=== PATIENT | female | born 1955 | race Caucasian/White ===

== ENCOUNTER → 2017-12-13 | Outpatient (CLI) | payer MEDICARE, OTHER ==
[2017-12-13 16:40] LABS: APPEARANCE,URINE CLEAR; BILIRUBIN,URINE NEGATIVE (NEGATIVE); COLOR,URINE STRAW; GLUCOSE, URINE NEGATIVE (NEGATIVE); KETONES,URINE NEGATIVE (NEGATIVE); LEUKOCYTE ESTERASE,URINE NEGATIVE (NEGATIVE); NITRITE,URINE NEGATIVE (NEGATIVE); PROTEIN,URINE NEGATIVE (NEGATIVE); URINE SPECIFIC GRAVITY 1.008; UROBILINOGEN,URINE NEGATIVE mg/dL (<2.0)
[2017-12-13 16:42] LABS: ABSOLUTE BASOPHILS # (AUTO) 0.1 10^3/uL (0.0-0.2); ABSOLUTE LYMPHOCYTES (AUTO) 1.4 10^3/uL (0.5-4.7); ABSOLUTE MONOCYTES (AUTO) 0.4 10^3/uL (0.1-1.4); ABSOLUTE NEUT (AUTO) 8.7 10^3/uL (1.7-8.2); BASOPHILS % (AUTO) 0.5 % (0-2); EOSINOPHILS % (AUTO) 0.3 % (0-6); HEMATOCRIT 39.4 % (36.0-47.0); HEMOGLOBIN 13.3 g/dL (12.0-15.5); INTERNATIONAL RATION (INR) 0.93; LYMPHOCYTES % (AUTO) 13.5 % (13-45); MEAN CORPUSCULAR HEMOGLOBIN 31.9 pg (27.0-33.4); MEAN CORPUSCULAR HGB CONC 33.7 g/dL (32.0-36.0); MEAN CORPUSCULAR VOLUME 95 fl (80-97); PARTIAL THROMBOPLASTIN TIME 26.8 SEC (23.5-35.8); PLATELET COUNT 257 10^3/uL (150-450); RED BLOOD COUNT 4.16 10^6/uL (3.72-5.28); RED CELL DISTRIBUTION WIDTH 13.6 % (11.5-14.0); SEGMENTED NEUTROPHILS % (AUTO) 81.7 % (42-78); TOTAL CELLS COUNTED % (AUTO) 100 %; WHITE BLOOD COUNT 10.7 10^3/uL (4.0-10.5)
== END ==
LOC: OD 15:18
PROVIDERS: ATTEND Pain Medicine Interventional Pain Medicine
DX: S22.060A Wedge compression fracture of T7-T8 vertebra, initial encounter for closed fracture (principal); X58.XXXA Exposure to other specified factors, initial encounter
CPT/HCPCS: 36415; 81001; 85025; 85610; 85730

== ENCOUNTER 2017-12-16 10:03 | Day surgery (SDC) | payer MEDICARE, OTHER ==
[~2017-12-16 10:03] MED LIST: CEFAZOLIN 1 GM/D5W RTU 1 GM/50 ML RTUPB IV PRN; RINGERS SOLUTION,LACTATED 1,000 ML IV PRN
[2017-12-16] MEDS ORDERED: KETAMINE HCL INJ 500 MG/10 ML VIAL ONE (11:31)
[2017-12-16] MEDS ORDERED: MIDAZOLAM 2 MG/2 ML INJ ONE (11:31)
[2017-12-16] MEDS ORDERED: FENTANYL CITRATE INJ/PF 100 MCG/2 ML AMPUL ONE ×2 (11:31)
[2017-12-16] MEDS ORDERED: LIDOCAINE 2% INJ-PF (20 MG/ML) 10 ML AMPUL ONE (11:31)
[2017-12-16] MEDS ORDERED: PROPOFOL INJ 200 MG/20 ML VIAL IV ONE (11:32)
[2017-12-16] MEDS ORDERED: ACETAMINOPHEN 100 ML IV ONE (11:32)
[2017-12-16] MEDS ORDERED: SODIUM BICARBONATE 8.4% INJ 50 MEQ/50 ML DISP.SYRIN ONE (12:09)
[2017-12-16] MEDS ORDERED: LIDOCAINE 1% INJ-PF (10 MG/ML) 30 ML SDV ONE (12:09)
[2017-12-16] MEDS ORDERED: FENTANYL CITRATE INJ/PF 100 MCG/2 ML AMPUL IV PRN ×3 (12:44)
[2017-12-16] MEDS ORDERED: OXYCODONE-ACETAMINOPHEN 5-325 MG TABLET PO PRN (12:44)
[2017-12-16] MEDS ORDERED: MEPERIDINE HCL/PF INJ 25 MG/1 ML DISP.SYRIN IV PRN (12:44)
[2017-12-16] MEDS ORDERED: PROMETHAZINE HCL INJ 25 MG/1 ML VIAL IV PRN ×2 (12:44)
[2017-12-16] MEDS ORDERED: MORPHINE SULFATE 10 MG/ML INJ IV PRN (12:44)
[2017-12-16] MEDS ORDERED: DIPHENHYDRAMINE HCL 50 MG/ML VIAL IV PRN (12:44)
[2017-12-16] MEDS ORDERED: ONDANSETRON HCL INJ/PF 4 MG/2 ML SDV IV PRN (12:44)
[2017-12-16] MEDS ORDERED: CEFAZOLIN INJ 1 GM VIAL ONE (13:13)
[2017-12-16] MEDS ORDERED: OXYCODONE-ACETAMINOPHEN 5-325 MG TABLET PO SCH (13:30)
--- NOTE | 2017-12-16 13:44 | OPERATIVE REPORT E ---
Operative Report NAME: THI CORDERO : 1955 AGE: 62Y DATE OF SURGERY: 12/16/2017 ROOM: PREOPERATIVE DIAGNOSIS: T8 compression fracture 25% with intractable pain. POSTOPERATIVE DIAGNOSIS: T8 compression fracture 25% with intractable pain. OPERATIVE PROCEDURE: T8 balloon kyphoplasty using fluoroscopy. SURGEON: KHOI ARRIAZA M.D. INDICATIONS: Intractable pain. COMPLICATIONS: None. SPECIMENS REMOVED: None. ASSISTANTS: None. ANESTHESIA: MAC. BLOOD LOSS: Minimal. PROCEDURE NOTE: After obtaining informed consent and advising the patient of the risks and benefits, including serious neurological injury, bleeding, infection, pneumothorax, aggravation of pain, paralysis, allergic reaction, and , she was taken to the operating room and placed comfortably in the prone position. Fluoroscopy was used to evaluate the spine. The T8 fracture was identified and compared to MRI imaging. The patient was then prepped with chlorhexidine with appropriate drying time and then draped. Again, with fluoroscopy, the vertebral body T8 was identified. A recount was performed to ensure proper location and identifying the nature of the appearance of the fracture. Beginning on the right side with a right perpendicular intended approach, the skin was anesthetized with 1% lidocaine with bicarb. The *------* tissue and subcutaneous tissue were anesthetized as well. Approximate total volume of 6 mL with local anesthetic was utilized. A small incision was then made in the skin. The Express trocar was then advanced under fluoroscopic guidance entering into the perpendicular location. Repeated views were taken in AP and lateral views to ensure safe location. The pedicle was entered followed by the vertebral body with assurance that it had not penetrated into the spinal canal medially prior to entering into the vertebral body. The Express trocar was advanced followed by placement of the drill to the anterior portion of the vertebral body. In the AP view, it appeared that there was near excellent location in the midline area. The drill was removed followed by placement of the balloon and the balloon was expanded. The balloon filled in the central location anteriorly, medially, and laterally. The decision was made at this point to proceed with a single balloon due to the satisfactory location of the filling. It also should be noted that the upper endplate of the fracture mobilized approximately 2 mm to give satisfactory mormonism of the vertebral body height. Cement was then mixed and then instilled for a total of 2.4 mL. The filler tube was then removed followed by placement of the Stylette into the trocar. The cement was allowed to harden additionally. The trocar was then removed. The region was then cleansed, sterile dressings were placed, and the patient was taken to the PACU. DICTATING PHYSICIAN: KHOI ARRIAZA M.D. [id number] PHY#: [id number] ID: [id number] JOB#: [id number] ACCT: [id number] cc:KHOI ARRIAZA M.D. >
[2017-12-16 15:06] VITALS: BP 126/77
--- NOTE | 2017-12-16 16:13 | RADIOLOGY REPORT (SQ) ---
EXAM DESCRIPTION: NO CHG FLUORO; T SPINE AP/LAT COMPLETED DATE/TIME: 12/16/2017 4:01 pm REASON FOR STUDY: KYPHOPLASTY ASST W/ FLUORO IN OR S22.060A WEDGE COMPRESSION FRACTURE OF T7-T8 IVAN TEBRA, INIT COMPARISON: None. FLUOROSCOPY TIME: 2.7 minutes Multiple fluoroscopic images saved to PACS. TECHNIQUE: Intra-operative images acquired during surgical procedure to evaluate progress. NUMBER OF IMAGES: Multiple fluoroscopic LIMITATIONS: None. FINDINGS: Selected images from kyphoplasty in the thoracic spine. Opaque cement in expected locatio n. IMPRESSION: IMAGE(S) OBTAINED DURING PROCEDURE. COMMENT: Quality ID 145: Final reports for procedures using fluoroscopy that document radiation exp osure indices, or exposure time and number of fluorographic images (if radiation exposure indices are not available) Please consult full operative report of the attending physician for description of the procedure. TECHNICAL DOCUMENTATION: JOB ID: [id number] [employer]- All Rights Reserved Reading location - IP/workstation name: [email or web address]
--- NOTE | 2017-12-16 16:13 | RADIOLOGY REPORT (SQ) ---
EXAM DESCRIPTION: NO CHG FLUORO; T SPINE AP/LAT COMPLETED DATE/TIME: 12/16/2017 4:01 pm REASON FOR STUDY: KYPHOPLASTY ASST W/ FLUORO IN OR S22.060A WEDGE COMPRESSION FRACTURE OF T7-T8 IVAN TEBRA, INIT COMPARISON: None. FLUOROSCOPY TIME: 2.7 minutes Multiple fluoroscopic images saved to PACS. TECHNIQUE: Intra-operative images acquired during surgical procedure to evaluate progress. NUMBER OF IMAGES: Multiple fluoroscopic LIMITATIONS: None. FINDINGS: Selected images from kyphoplasty in the thoracic spine. Opaque cement in expected locatio n. IMPRESSION: IMAGE(S) OBTAINED DURING PROCEDURE. COMMENT: Quality ID 145: Final reports for procedures using fluoroscopy that document radiation exp osure indices, or exposure time and number of fluorographic images (if radiation exposure indices are not available) Please consult full operative report of the attending physician for description of the procedure. TECHNICAL DOCUMENTATION: JOB ID: [id number] [employer]- All Rights Reserved Reading location - IP/workstation name: [email or web address]
== END 2017-12-16 15:10 | disposition home or self-care (01) ==
LOC: OROUT 10:03
PROVIDERS: ATTEND Pain Medicine Interventional Pain Medicine
DX: S22.060A Wedge compression fracture of T7-T8 vertebra, initial encounter for closed fracture (principal); X58.XXXA Exposure to other specified factors, initial encounter; I10 Essential (primary) hypertension; J45.909 Unspecified asthma, uncomplicated; M19.90 Unspecified osteoarthritis, unspecified site; Z88.8 Allergy status to other drugs, medicaments and biological substances; Z88.5 Allergy status to narcotic agent; Z87.891 Personal history of nicotine dependence
CPT/HCPCS: 72070; 22513; Q9966; J2250; J0690 ×2; J3010; J3490 ×4; J2704; J0131; 1936

== ENCOUNTER 2018-10-08 15:27 | Emergency (ER) | payer MEDICARE, OTHER ==
[2018-10-08] MEDS ORDERED: ASPIRIN 81 MG TABLET, CHEWABLE PO ONE (16:15)
[2018-10-08] MEDS ORDERED: NITROGLYCERIN 2% OINTMENT 1 GM PACKET TP ONE (16:16)
--- NOTE | 2018-10-08 16:17 | ER Document Report ---
ED Medical Screen (RME) - General Chief Complaint: Chest Pain Stated Complaint: CHEST PAIN, HEARTRATE ISSUE Time Seen by Provider: 10/08/18 16:09 Primary Care Provider: ANNIKA FINCH MD [Primary Care Provider] - Follow up as needed Notes: Chief complaint: Chest pain History of complain:( obtained from----patient) 53 years old female presents today with left-sided chest pain over the precordial region radiating to the back associated with the left arm numbness and tingling sensation since this morning. Nauseous but did not vomit today but vomited once yesterday. Denies any palpitation or diaphoresis. Denies any previous history of coronary artery disease. History of COPD, former smoker PHYSICAL EXAMINATION: GENERAL: Well-appearing, well-nourished and in no acute distress. HEAD: Atraumatic, normocephalic. EYES: Pupils equal round and reactive to light, extraocular movements intact, conjunctiva are normal. ENT: Nares patent, oropharynx clear without exudates. Moist mucous membranes. NECK: Normal range of motion, supple without lymphadenopathy LUNGS: Breath sounds clear to auscultation bilaterally and equal. No wheezes rales or rhonchi. HEART: Regular rate and rhythm without murmurs ABDOMEN: Soft, nontender, nondistended abdomen. No guarding, no rebound. No masses appreciated. Examination of genitals-deferred Dictation was performed using [employer] voice recognition software TRAVEL OUTSIDE OF THE [place] IN LAST 30 DAYS: No - Related Data Allergies/Adverse Reactions: Riiniwx-Swp-Xdd Reductase Inhibitor Allergy (Verified 10/08/18 15:28) rash oxycodone HCl [From Percocet] Adverse Reaction (Verified 10/08/18 15:28) see comments Past Medical History - Social History Chew tobacco use (# tins/day): No Frequency of alcohol use: None Drug Abuse: None - Past Medical History Cardiac Medical History: Reports: Hx Hypertension Denies: Hx Coronary Artery Disease, Hx Heart Attack Pulmonary Medical History: Reports: Hx Asthma, Hx COPD, Hx Pneumonia - about 4 years ago Denies: Hx Bronchitis Neurological Medical History: Denies: Hx Cerebrovascular Accident, Hx Seizures Renal/ Medical History: Denies: Hx Peritoneal Dialysis Musculoskeltal Medical History: Reports Hx Arthritis - RA Past Surgical History: Reports: Hx Abdominal Surgery - neissen fundoplasty, Hx Cholecystectomy, Hx Hysterectomy, Hx Orthopedic Surgery - back/left wrist - Immunizations Hx Diphtheria, Pertussis, Tetanus Vaccination: No History of Influenza Vaccine for 05/2017 - 10/2017 Season: Yes Influenza Administration Date for 05/2017 - 10/2017 Season: 03/12/18 Physical Exam - Vital signs Vitals: Temp Pulse BP Pulse Ox 98.6 F 101 H 132/85 H 97 10/08/18 15:40 10/08/18 15:40 10/08/18 15:40 10/08/18 15:40 Course - Vital Signs Vital signs: Temp Pulse Resp BP Pulse Ox 98.6 F 101 H 132/85 H 97 10/08/18 15:40 10/08/18 15:40 10/08/18 15:40 10/08/18 15:40 Doctor's Discharge - Discharge Referrals: ANNIKA FINCH MD [Primary Care Provider] - Follow up as needed
--- NOTE | 2018-10-08 16:46 | RADIOLOGY REPORT (SQ) ---
EXAM DESCRIPTION: CHEST SINGLE VIEW COMPLETED DATE/TIME: 10/08/2018 4:35 pm REASON FOR STUDY: Chest pain COMPARISON: None. EXAM PARAMETERS: NUMBER OF VIEWS: One view. TECHNIQUE: Single frontal radiographic view of the chest acquired. RADIATION DOSE: NA LIMITATIONS: None. FINDINGS: LUNGS AND PLEURA: No opacities, masses or pneumothorax. No pleural effusion. MEDIASTINUM AND HILAR STRUCTURES: No masses. Contour normal. HEART AND VASCULAR STRUCTURES: Heart normal in size. Normal vasculature. BONES: No acute findings. HARDWARE: None in the chest. OTHER: No other significant finding. IMPRESSION: NO ACUTE RADIOGRAPHIC FINDING IN THE CHEST. TECHNICAL DOCUMENTATION: JOB ID: [id number] [employer]- All Rights Reserved Reading location - IP/workstation name: [email or web address]
[2018-10-08 18:02] LABS: ABSOLUTE BASOPHILS # (AUTO) 0.1 10^3/uL (0.0-0.2); ABSOLUTE EOSINOPHILS # (AUTO) 0.3 10^3/uL (0.0-0.6); ABSOLUTE LYMPHOCYTES (AUTO) 2.3 10^3/uL (0.5-4.7); ABSOLUTE NEUT (AUTO) 6.5 10^3/uL (1.7-8.2); BASOPHILS % (AUTO) 1.2 % (0-2); EOSINOPHILS % (AUTO) 3.4 % (0-6); HEMATOCRIT 42.9 % (36.0-47.0); HEMOGLOBIN 14.8 g/dL (12.0-15.5); LYMPHOCYTES % (AUTO) 22.5 % (13-45); MEAN CORPUSCULAR HEMOGLOBIN 33.5 pg (27.0-33.4); MEAN CORPUSCULAR HGB CONC 34.5 g/dL (32.0-36.0); MEAN CORPUSCULAR VOLUME 97 fl (80-97); MONOCYTES % (AUTO) 9.7 % (3-13); PLATELET COUNT 237 10^3/uL (150-450); RED BLOOD COUNT 4.42 10^6/uL (3.72-5.28); RED CELL DISTRIBUTION WIDTH 14.1 % (11.5-14.0); SEGMENTED NEUTROPHILS % (AUTO) 63.2 % (42-78); TOTAL CELLS COUNTED % (AUTO) 100 %; WHITE BLOOD COUNT 10.3 10^3/uL (4.0-10.5)
[2018-10-08 18:12] LABS: ALANINE AMINOTRANSFERASE 26 U/L (9-52); ALBUMIN 4.9 g/dL (3.5-5.0); ALKALINE PHOSPHATASE 145 U/L (38-126); ANION GAP 12 (5-19); ASPARTATE AMINO TRANSFERASE 35 U/L (14-36); BILIRUBIN,DIRECT 0.2 mg/dL (0.0-0.4); BILIRUBIN,TOTAL 0.5 mg/dL (0.2-1.3); BLOOD UREA NITROGEN 20 mg/dL (7-20); CARBON DIOXIDE 27 mmol/L (22-30); CHLORIDE 100 mmol/L (98-107); CREATINE KINASE 64 U/L (30-135); GLUCOSE 88 mg/dL (75-110); POTASSIUM 4.2 mmol/L (3.6-5.0); SODIUM 138.7 mmol/L (137-145); TOTAL PROTEIN 7.4 g/dL (6.3-8.2)
[2018-10-08 18:25] LABS: CREATINE KINASE MB 1.25 ng/mL (<4.55)
[2018-10-08 18:26] LABS: TROPONIN I < 0.012 ng/mL
--- NOTE | 2018-10-08 19:18 | ER Document Report ---
ED Cardiac - General Chief Complaint: Chest Pain Stated Complaint: CHEST PAIN, HEARTRATE ISSUE Time Seen by Provider: 10/08/18 19:10 Primary Care Provider: ANNIKA FINCH MD [ACTIVE STAFF] - Follow up as needed Mode of Arrival: Ambulatory Information source: Patient Notes: HISTORY OF PRESENT ILLNESS: Patient is a 63-year-old female with a past medical history of hypertension, COPD, and arthritis who presents with palpitations and chest tightness that began 2 days ago. Location: Central chest Onset: Abrupt Alleviation: None known Provocation: Unknown Quality: "My heart is racing, then I get tightness" Radiation: None Severity: Mild to moderate Timing: Intermittent History of CAD: None Associated symptoms: No shortness of breath, no lightheadedness or dizziness, no confusion or disorientation, no fevers or chills, no cough or congestion REVIEW OF SYSTEMS: CONSTITUTIONAL : Denies fever or chills, no sweats. Denies recent illness. EENT: Denies eye, ear, throat, or mouth pain or symptoms. Denies nasal or sinus congestion. CARDIOVASCULAR: Positive for palpitations and chest tightness. Denies swelling of the legs. RESPIRATORY: Denies cough, cold, or chest congestion. Denies shortness of breath or difficulty breathing. Denies wheezing. GASTROINTESTINAL: Denies abdominal pain. Denies nausea, vomiting, or diarrhea. Denies constipation. GENITOURINARY: Denies difficulty urinating, painful urination, burning, frequency, or blood in urine. FEMALE GENITOURINARY: Denies vaginal bleeding, abnormal or irregular periods. MUSCULOSKELETAL: Denies neck or back pain or joint pain or swelling. SKIN: Denies rash or skin lesions. HEMATOLOGIC : Denies easy bruising or bleeding. LYMPHATIC: Denies swollen, enlarged glands. NEUROLOGICAL: Denies altered mental status or loss of consciousness. Denies headache. Denies weakness or paralysis or loss of use of either side. Denies problems with gait or speech. Denies sensory or motor loss. PSYCHIATRIC: Denies anxiety or stress or depression. All other systems reviewed and negative. PHYSICAL EXAMINATION: GENERAL: Well-appearing, well-nourished and in no acute distress. HEAD: Atraumatic, normocephalic. No scalp deformity, depression, or crepitance. EYES: Pupils are 3 mm and equal/round/reactive to light, extraocular movements intact, sclera anicteric, conjunctiva are normal. ENT: Nares patent bilaterally, oropharynx. Moist mucous membranes. No tonsil hypertrophy. NECK: Normal range of motion, supple without lymphadenopathy. LUNGS: Breath sounds present, equal, and clear to auscultation bilaterally. No wheezes, rales, or rhonchi. HEART: Regular rate and rhythm without murmurs, rubs, or gallops. 2+ peripheral pulses. Normal capillary refill. ABDOMEN: Soft, nontender, nondistended. Normoactive bowel sounds. No guarding, no rebound. No masses appreciated. BACK: Normal contour, no midline tenderness. Rectal exam deferred. GENITAL/PELVIC: Deferred. EXTREMITIES: Normal range of motion, no pitting or edema. No cyanosis. NEUROLOGICAL: No focal neurological deficits. Moves all extremities spontaneously and on command. PSYCH: Normal mood, normal affect. No suicidal thoughts/ideations. No homocidal thoughts/ideations. No hallucinations. SKIN: Warm, dry, normal turgor, no rashes or lesions noted. ASSESSMENT AND PLAN: This patient is a 63-year-old female who presents with intermittent palpitations with chest tightness that is likely secondary to PSVT versus intermittent A. fib with RVR, doubt primary cardiac such as acute OH. Initial labs with troponin ar e all negative and chest x-ray is also normal. 1. Will obtain second cardiac enzyme and reassess. 2. Will instruct the patient to have an outpatient stress test as soon as possible. TRAVEL OUTSIDE OF THE [place] IN LAST 30 DAYS: No - Related Data Allergies/Adverse Reactions: Gwfaaha-Htq-Rax Reductase Inhibitor Allergy (Verified 10/08/18 15:28) rash oxycodone HCl [From Percocet] Adverse Reaction (Verified 10/08/18 15:28) see comments Past Medical History - General Information source: Patient - Social History Smoking Status: Former Smoker Chew tobacco use (# tins/day): No Frequency of alcohol use: None Drug Abuse: None Lives with: Family Family History: Reviewed & Not Pertinent Patient has suicidal ideation: No Patient has homicidal ideation: No - Past Medical History Cardiac Medical History: Reports: Hx Hypertension Denies: Hx Coronary Artery Disease, Hx Heart Attack Pulmonary Medical History: Reports: Hx Asthma, Hx COPD, Hx Pneumonia - about 4 years ago Denies: Hx Bronchitis EENT Medical History: Reports: None Neurological Medical History: Reports: None. Denies: Hx Cerebrovascular Accident, Hx Seizures Endocrine Medical History: Reports: None Renal/ Medical History: Reports: None. Denies: Hx Peritoneal Dialysis Malignancy Medical History: Reports: None GI Medical History: Reports: None Musculoskeletal Medical History: Reports Hx Arthritis - RA Skin Medical History: Reports None Psychiatric Medical History: Reports: None Traumatic Medical History: Reports: None Infectious Medical History: Reports: None Past Surgical History: Reports: Hx Abdominal Surgery - neissen fundoplasty, Hx Cholecystectomy, Hx Hysterectomy, Hx Orthopedic Surgery - back/left wrist - Immunizations Immunizations up to date: Yes Hx Diphtheria, Pertussis, Tetanus Vaccination: No History of Influenza Vaccine for 05/2017 - 10/2017 Season: Unknown Hx Pneumococcal Vaccination: 08/12/15 Physical Exam - Vital signs Vitals: Temp Pulse BP Pulse Ox 98.6 F 101 H 132/85 H 97 10/08/18 15:40 10/08/18 15:40 10/08/18 15:40 10/08/18 15:40 Course - Re-evaluation Re-evalutation: 10/08/18 23:55 Second troponin is negative. Patient will be discharged home with return precautions and follow-up with cardiology for outpatient stress test. Patient voices both understanding and agreeing with the plan. - Vital Signs Vital signs: Temp Pulse Resp BP Pulse Ox 98.6 F 101 H 15 128/71 H 95 10/08/18 15:40 10/08/18 15:40 10/08/18 23:01 10/08/18 23:01 10/08/18 23:01 - Laboratory Result Diagrams: 10/08/18 17:13 10/08/18 17:13 Laboratory results interpreted by me: 10/08/18 10/08/18 17:13 17:13 MCH 33.5 H RDW 14.1 H Est GFR ( Amer) 54 L Est GFR (Non-Af Amer) 44 L Calcium 11.0 H Alkaline Phosphatase 145 H - Diagnostic Test Radiology reviewed: Image reviewed, Reports reviewed - EKG Interpretation by Me EKG shows normal: Sinus rhythm Rate: Normal Rhythm: NSR [place]/QRS: No: Right axis deviation, Left axis deviation, RBBB, LBBB, IVCD, LAHB/LAFB, LPHB/LPFB, Bifasicular block Voltage: No: Increased voltage, Consistant with LVH, Decreased voltage, Throughout, Limb leads P Waves: No: LAVON, LAE, Absent, AV Dissociation, Other Heart block present: No: 1st Degree, Mobitz 1, Mobitz 2, CHB (3rd degree block) When compared to previous EKG there are: Previous EKG unavailable Discharge - Discharge Clinical Impression: Heart palpitations Chest pain Qualifiers: Chest pain type: unspecified Qualified Code(s): R07.9 - Chest pain, unspecified Condition: Good Disposition: HOME, SELF-CARE Instructions: Chest Pain of Unclear Cause ([facility]), Palpitations (Irregular or Rapid Heartrate) ([facility]) Additional Instructions: You have been evaluated in the Emergency Department for heart palpitations and pain. While here, you had blood work that was normal and it is now safe to be discharged home. Please follow-up with your primary physician and a cash surrender calculator to have an outpatient stress test as instructed as soon as possible. Return to the Emergency Department if you experience worsening pain, difficulty breathing, episodes of passing out, or any other concerning symptoms. Referrals: ANNIKA FINCH MD [ACTIVE STAFF] - Follow up as needed ROYA JORDAN MD [ACTIVE STAFF] - Follow up as needed Print Language: [place]
[2018-10-09 00:26] VITALS: BP 141/80
--- NOTE | 2018-10-09 22:14 | EKG REPORT ---
SEVERITY:- NORMAL ECG - SINUS RHYTHM : Confirmed by: Emilia Gray 09-Oct-2018 22:14:19
== END 2018-10-09 00:12 | disposition home or self-care (01) ==
LOC: ER 15:27
DX: R07.89 Other chest pain (principal); R00.2 Palpitations; I10 Essential (primary) hypertension; J44.9 Chronic obstructive pulmonary disease, unspecified; Z87.891 Personal history of nicotine dependence; Z88.8 Allergy status to other drugs, medicaments and biological substances
CPT/HCPCS: 93005; 99285; 36415; 82553; 82550; 85025; 80053; 84484; 71045; 93010; A9270 ×2